=== PATIENT | male | born 1960 | race Caucasian/White ===

== ENCOUNTER 2020-06-01 05:39 | Inpatient (IN) | payer BC ==
[~2020-06-01] VITALS: Ht 175.3 cm; Wt 88.2 kg
[2020-06-01] VITALS (15 sets, daily range): BP systolic 108–156; BP diastolic 53–100
[2020-06-01] MEDS ORDERED: ketorolac trometh. 30mg/ml inj. IV ONE (06:25)
[2020-06-01] MEDS ORDERED: acetaminophen 325mg tablet PO ONE (06:25)
[2020-06-01] MEDS ORDERED: ondansetron/PF 4mg/2ml inj IV ONE (06:25)
[2020-06-01] MEDS ORDERED: morphine 4 MG/ML inj SYRINge IV ONE (06:25)
[2020-06-01] MEDS ORDERED: normal saline 1000ml 1,000 ML IV ONE (06:25)
--- NOTE | 2020-06-01 06:44 | NUR ---
[facility] [phone]
[2020-06-01 06:53] LABS: BASOPHILS # (AUTO) 0.1 X10'3 (0-0.2); EOSINOPHILS # (AUTO) 0.2 X10'3 (0-0.9); EOSINOPHILS % (AUTO) 1.5 % (0-6); MEAN CORPUSCULAR VOLUME 86.7 FL (78-98)
[2020-06-01 06:55] LABS: BASOPHILS % (AUTO) 0.5 % (0-1); HEMATOCRIT 35.3 % (42.0-52.0); HEMOGLOBIN 11.9 g/dl (14.0-17.9); LYMPHOCYTES # (AUTO) 1.8 X10'3 (1.1-4.8); LYMPHOCYTES % (AUTO) 12.8 % (21-51); MEAN CORPUSCULAR HEMOGLOBIN 29.1 PG (27.0-31.0); MEAN CORPUSCULAR HGB CONC 33.6 g/dL (33.0-36.5); MEAN PLATELET VOLUME 6.9 FL (7.4-10.4); MONOCYTES # (AUTO) 1.6 X10'3 (0-0.9); MONOCYTES % (AUTO) 11.4 % (2-12); NEUTROPHILS # (AUTO) 10.3 X10'3 (1.8-7.7); NEUTROPHILS % (AUTO) 73.8 % (42-75); PLATELET COUNT 617 X10'3 (140-440); RED BLOOD COUNT 4.07 X10'6 (4.70-6.10); RED CELL DISTRIBUTION WIDTH 12.8 % (11.5-14.5)
[2020-06-01 06:56] LABS: CLARITY,URINE CLEAR (Clear); COLOR,URINE YELLOW (Yellow); GLUCOSE, URINE NEGATIVE (Neg); KETONES,URINE NEGATIVE (Neg); LEUKOCYTE ESTERASE ,URINE NEGATIVE (Neg); NITRITES, URINE NEGATIVE (Neg); OCCULT BLOOD,URINE SMALL (Neg); PH,URINE 6.5 (4.8-8.0); PROTEIN,URINE NEGATIVE (Neg); UROBILINOGEN,URINE 0.2 E.U/dL (0.2-1.0)
[2020-06-01 07:00] LABS: UA COLLECTION TYPE URINAL
[2020-06-01 07:05] LABS: BACTERIA,URINE FEW /HPF (Neg); MUCUS STRANDS FEW /LPF (Neg); SQUAMOUS EPITHELIAL CELL,UR FEW /LPF (FEW); WBC,URINE 0-4 /HPF (0-4)
[2020-06-01 07:20] LABS: ALANINE AMINOTRANSFERASE 50 U/L (12-78); ALBUMIN 2.8 G/DL (3.4-5.0); ALBUMIN/GLOBULIN RATIO 0.6 (1.1-1.5); ALKALINE PHOSPHATASE 97 IU/L (46-116); ANION GAP 14 (8-16); ASPARTATE AMINO TRANSFERASE 14 U/L (10-37); BILIRUBIN,TOTAL 0.4 MG/DL (0.1-1.0); BLOOD UREA NITROGEN 10 MG/DL (7-18); BUN/CREATININE RATIO 9.1 (5.4-32.0); CALCIUM 9.2 MG/DL (8.5-10.1); CHLORIDE 102 MMOL/L (99-107); GLUCOSE 158 MG/DL (70-104); POTASSIUM 3.4 MMOL/L (3.5-5.1); SODIUM 138 MMOL/L (135-145); TOTAL CARBON DIOXIDE 22.3 MMOL/L (24-32); TOTAL PROTEIN 7.7 G/DL (6.4-8.2); eGFR 68 ML/MIN
[2020-06-01] MEDS ORDERED: iohexol 300mg/ml 100ml inj. ONE (07:27)
[2020-06-01] MEDS ORDERED: piperacillin/tazo 4.5gm/100ml 100 ML IV SCH (08:30)
[2020-06-01] MEDS ORDERED: NO HOME MEDS (08:51)
[2020-06-01] MEDS ORDERED: mag hydrox/Alum hydrox/simeth 30ml oral suspension PO PRN (09:15)
[2020-06-01] MEDS ORDERED: magnesium hydroxide 30ml (MOM) UD suspension PO PRN (09:15)
[2020-06-01] MEDS ORDERED: acetaminophen 325mg tablet PO PRN ×2 (09:15)
[2020-06-01] MEDS ORDERED: HYDROcodone/acetaminophen 10/325mg tab PO PRN ×2 (09:15→16:15)
[2020-06-01] MEDS ORDERED: magnesium 4gm in 100ml NS 100 ML IV PRN (09:15)
[2020-06-01] MEDS ORDERED: morphine 2 MG/ML inj. syringe IV PRN ×3 (09:15→15:15)
[2020-06-01] MEDS ORDERED: potassium Cl 20 mEq SR tablet PO PRN ×2 (09:15)
[2020-06-01] MEDS ORDERED: potassium CL 10mEq/100ml bag 100 ML IV PRN ×2 (09:15)
[2020-06-01] MEDS ORDERED: magnesium Cl slow-release 64mg tablet PO PRN (09:15)
[2020-06-01] MEDS ORDERED: magnesium 2GM in 50ml NS 50 ML IV PRN (09:15)
[2020-06-01] MEDS ORDERED: ondansetron/PF 4mg/2ml inj IV PRN ×2 (09:15→15:15)
[2020-06-01] MEDS ORDERED: HYDROcodone/acetaminophen 5mg/325mg tablet PO PRN ×2 (09:15→16:15)
[2020-06-01 09:41] LABS: HEMOGLOBIN A1C 6.4 % (4.5-6.2)
[2020-06-01] MEDS: normal saline 1000ml 1,000 ML IV SCH ×2 (09:59→18:50)
[2020-06-01] MEDS: vancomycin/NS 1 GM ADD-VANTAGE 250 ML IV SCH ×2 (10:00→22:58)
--- NOTE | 2020-06-01 11:32 | NUR ---
Attempted to call report.
--- NOTE | 2020-06-01 12:03 | NUR ---
I have received report from MEY Doss and had the opportunity to ask questions and assume patient care.
--- NOTE | 2020-06-01 12:10 | NUR ---
Pt arrived to surgical floor via wheelchair to room 355B
[2020-06-01] MEDS ORDERED: BUPIVAcaine 0.25% w/Epi /PF 30ml vial ONE ×2 (15:00→15:08)
[2020-06-01] MEDS ORDERED: LIDOcaine 1% w/epiNEPHrine 1:200,000 30ml vial ONE (15:00)
--- NOTE | 2020-06-01 15:07 | NUR ---
Pt not on surgical floor for 1000 dose vancomycin.
--- NOTE | 2020-06-01 15:08 | NUR ---
Pt transferred to OR via hospital bed. All belongings left in room 355B.
[2020-06-01] MEDS ORDERED: ringers solution, lacted 1,000 ML IV SCH (15:15)
[2020-06-01] MEDS ORDERED: proCHLORperazine 10 MG/2 ml inj IV PRN (15:15)
[2020-06-01] MEDS ORDERED: meperidine/PF 25mg/ml syringe IV PRN ×3 (15:15)
[2020-06-01] MEDS ORDERED: morphine 4 MG/ML inj SYRINge IV PRN (15:15)
[2020-06-01] MEDS ORDERED: rocuronium 10mg/ml inj IV ONE (15:22)
[2020-06-01] MEDS ORDERED: midazolam 2 mg/2 ml injection ONE (15:22)
[2020-06-01] MEDS ORDERED: propofol inj 20 ML IV ONE (15:22)
[2020-06-01] MEDS ORDERED: fentaNYL/PF 50MCG/1 ML 2ML syringe ONE (15:22)
[2020-06-01] MEDS ORDERED: sugammadex 200mg/2ml injection IV ONE (15:48)
--- NOTE | 2020-06-01 16:00 | NUR ---
Received from OR via surgical bed, accompanied by Anesthesiologist Jarrell and report given by Anesthesiolgist. 20G right AC NS at 100cc/hr. Surgical site has packing, ABD and mesh pants over it.
--- NOTE | 2020-06-01 16:00 | NUR ---
All VS stable at time of arrival to PACU and sats 98% mask at 10L.
--- NOTE | 2020-06-01 16:40 | NUR ---
Pt returned to OR on hospital bed, call light within reach, post op vital signs started. Will continue to monitor.
--- NOTE | 2020-06-01 16:40 | NUR ---
Report called to receiving nurse. Transferred via surgical bed to room 355B. Belongings remain in patient's room. Special Issues communicated to receiving nurse Jeanie MATHIAS. Pt alert and oriented, 0/10 pain. Call light within reach and BLL. Post op VS stable. Chart at bedside.
[2020-06-01] MEDS ORDERED: oxymetazoline 15 ML nasal spray NS PRN (17:25)
--- NOTE | 2020-06-01 18:50 | NUR ---
Problems reprioritized. Patient report given, questions answered & plan of care reviewed with MEY Ferro.
--- NOTE | 2020-06-01 18:52 | NUR ---
Patient in room [facility] 355. I have received report from BRENDA MATHIAS and had the opportunity to ask questions and assume patient care.
[2020-06-01] MEDS: K and/or MAG REPLACEMENT MC SCH (20:00)
[2020-06-01] MEDS ORDERED: temazepam 15mg capsule PO PRN (21:00)
[2020-06-01] MEDS: heparin, porcine 5000 units/ml vial SQ SCH (21:22)
[2020-06-02] VITALS: BP 100/50
[2020-06-02 05:31] LABS: ALANINE AMINOTRANSFERASE 36 U/L (12-78); ALBUMIN 2.4 G/DL (3.4-5.0); ALBUMIN/GLOBULIN RATIO 0.5 (1.1-1.5); ALKALINE PHOSPHATASE 77 IU/L (46-116); ANION GAP 10 (8-16); ASPARTATE AMINO TRANSFERASE 9 U/L (10-37); BILIRUBIN,TOTAL 0.3 MG/DL (0.1-1.0); BLOOD UREA NITROGEN 8 MG/DL (7-18); BUN/CREATININE RATIO 9.2 (5.4-32.0); CALCIUM 8.9 MG/DL (8.5-10.1); CHLORIDE 107 MMOL/L (99-107); CREATININE 0.87 MG/DL (0.60-1.10); GLUCOSE 106 MG/DL (70-104); POTASSIUM 3.6 MMOL/L (3.5-5.1); SODIUM 142 MMOL/L (135-145); TOTAL CARBON DIOXIDE 24.6 MMOL/L (24-32); TOTAL PROTEIN 6.8 G/DL (6.4-8.2); eGFR 89 ML/MIN
[2020-06-02 06:23] LABS: BASOPHILS % (AUTO) 0.4 % (0-1); EOSINOPHILS # (AUTO) 0.3 X10'3 (0-0.9); EOSINOPHILS % (AUTO) 2.9 % (0-6); HEMATOCRIT 30.9 % (42.0-52.0); HEMOGLOBIN 10.4 g/dl (14.0-17.9); LYMPHOCYTES # (AUTO) 2.1 X10'3 (1.1-4.8); LYMPHOCYTES % (AUTO) 19.6 % (21-51); MEAN CORPUSCULAR HEMOGLOBIN 29.8 PG (27.0-31.0); MEAN CORPUSCULAR HGB CONC 33.7 g/dL (33.0-36.5); MEAN CORPUSCULAR VOLUME 88.3 FL (78-98); MEAN PLATELET VOLUME 6.9 FL (7.4-10.4); MONOCYTES % (AUTO) 9.3 % (2-12); NEUTROPHILS # (AUTO) 7.4 X10'3 (1.8-7.7); NEUTROPHILS % (AUTO) 67.8 % (42-75); PLATELET COUNT 549 X10'3 (140-440); RED CELL DISTRIBUTION WIDTH 13.1 % (11.5-14.5); WHITE BLOOD COUNT 10.9 X10'3 (4.5-11.0)
--- NOTE | 2020-06-02 06:30 | NUR ---
Problems reprioritized. Patient report given, questions answered & plan of care reviewed with BRENDA MATHIAS.
--- NOTE | 2020-06-02 06:43 | NUR ---
Patient in room [facility] 355. I have received report from MEY Ferro and had the opportunity to ask questions and assume patient care.
[2020-06-02 07:00] VITALS: BP 117/73
[2020-06-02] MEDS: K and/or MAG REPLACEMENT MC SCH (08:00)
[2020-06-02] MEDS: heparin, porcine 5000 units/ml vial SQ SCH (08:28)
[2020-06-02] MEDS: normal saline 1000ml 1,000 ML IV SCH (08:28)
[2020-06-02 11:00] VITALS: BP 125/69
[2020-06-02] MEDS: vancomycin/NS 1 GM ADD-VANTAGE 250 ML IV SCH (11:50)
[2020-06-02] MEDS ORDERED: ACET-1008 PO (15:39)
[2020-06-02] MEDS ORDERED: IBUP-1985 PO (15:48)
--- NOTE | 2020-06-02 16:24 | NUR ---
Pt discharged per nursing. Discharge instructions and medications reviewed. Pt declined to have ibuprofen and acetaminophen called in to pharmacy. States he has a large bottle of both at home. Pt instructed to follow up with wound care clinic, phone number provided for pt to call on Thursday for appointment. Pt provided with sitz bath, gia bottle, and several ABD pads. Educated pt to watch for signs or symptoms of infection, and to return to ED if any symptoms noted. Pt stated understanding of all discharge instructions and willingness to comply. Ride pending.
--- NOTE | 2020-06-02 16:30 | NUR ---
Pt escorted to front lobby by primary RN, with all belongings.
[2020-06-02] MEDS ORDERED: CIPR-259 PO (18:49)
[2020-06-02] MEDS ORDERED: METR-159 PO (18:50)
[2020-06-02] MEDS ORDERED: lactobacillus rhamnosus 10,000 MMU CELLS/CAPSULE PO SCH (20:00)
[2020-06-02] MEDS ORDERED: VANCOMYCIN LEVEL IV ONE (21:30)
== END 2020-06-02 16:32 | disposition home or self-care (01) | DRG 395 ==
LOC: ER 05:40 → ED HOLD 09:13 → SUR 3N 12:25
PROVIDERS: ADMIT Internal Medicine; ATTEND Internal Medicine
PROC: BW211ZZ Computerized Tomography (CT Scan) of Abdomen and Pelvis using Low Osmolar Contrast (ICD-10-PCS; 2020-06-01)
PROC: 0D9P3ZZ Drainage of Rectum, Percutaneous Approach (ICD-10-PCS; principal; 2020-06-01 15:14)
DX: K61.2 Anorectal abscess (principal); K21.9 Gastro-esophageal reflux disease without esophagitis
CPT/HCPCS: 36415; 71045; 74177; 80053; 81001; 82948; 83036; 83605; 83735; 84145; 84484; 85025; 87070; 87075; 87077; 87081; 87102; 87186; 93005; C9399; G0378; J1644; J1885; J2250; J2270; J2405; J2543; J2704; J3010; J3370; J7030; Q9967

== ENCOUNTER 2020-06-13 13:06 | Outpatient (CLI) | payer BC ==
[~2020-06-13 13:06] MED LIST: ACET-1008 PO; CIPR-259 PO; IBUP-1985 PO; METR-159 PO
[2020-06-13] MEDS ORDERED: LIDOcaine 2% 5ml jelly ONE (13:37)
== END 2020-06-13 23:59 | disposition home or self-care (01) ==
LOC: WOUND CARE 13:06
PROVIDERS: ATTEND Nurse Practitioner
DX: T81.31XA Disruption of external operation (surgical) wound, not elsewhere classified, initial encounter (principal); L98.492 Non-pressure chronic ulcer of skin of other sites with fat layer exposed; K61.1 Rectal abscess; K21.9 Gastro-esophageal reflux disease without esophagitis; Z87.891 Personal history of nicotine dependence; Y83.8 Other surgical procedures as the cause of abnormal reaction of the patient, or of later complication, without mention of misadventure at the time of the procedure; Y92.238 Other place in hospital as the place of occurrence of the external cause
CPT/HCPCS: 11042

== ENCOUNTER 2020-06-17 11:08 | Inpatient (IN) | payer BC ==
[~2020-06-17] VITALS: Ht 172.7 cm; Wt 103.5 kg
[~2020-06-17 11:08] MED LIST changes: -CIPR-259 PO; -METR-159 PO
[2020-06-17 12:45] LABS: BASOPHILS # (AUTO) 0.1 X10'3 (0-0.2); BASOPHILS % (AUTO) 0.6 % (0-1); EOSINOPHILS # (AUTO) 0.1 X10'3 (0-0.9); EOSINOPHILS % (AUTO) 0.6 % (0-6); HEMATOCRIT 37.6 % (42.0-52.0); HEMOGLOBIN 12.6 g/dl (14.0-17.9); LYMPHOCYTES % (AUTO) 15.3 % (21-51); MEAN CORPUSCULAR HEMOGLOBIN 28.8 PG (27.0-31.0); MEAN CORPUSCULAR HGB CONC 33.5 g/dL (33.0-36.5); MEAN CORPUSCULAR VOLUME 86.1 FL (78-98); MONOCYTES # (AUTO) 1.4 X10'3 (0-0.9); NEUTROPHILS # (AUTO) 9.5 X10'3 (1.8-7.7); NEUTROPHILS % (AUTO) 72.5 % (42-75); PLATELET COUNT 389 X10'3 (140-440); RED BLOOD COUNT 4.37 X10'6 (4.70-6.10); RED CELL DISTRIBUTION WIDTH 13.7 % (11.5-14.5); WHITE BLOOD COUNT 13.1 X10'3 (4.5-11.0)
[2020-06-17 12:51] LABS: ALANINE AMINOTRANSFERASE 64 U/L (12-78); ALBUMIN 3.4 G/DL (3.4-5.0); ALBUMIN/GLOBULIN RATIO 0.8 (1.1-1.5); ALKALINE PHOSPHATASE 106 IU/L (46-116); ANION GAP 10 (8-16); ASPARTATE AMINO TRANSFERASE 22 U/L (10-37); BILIRUBIN,TOTAL 0.6 MG/DL (0.1-1.0); BLOOD UREA NITROGEN 11 MG/DL (7-18); BUN/CREATININE RATIO 12.8 (5.4-32.0); CALCIUM 9.4 MG/DL (8.5-10.1); CHLORIDE 104 MMOL/L (99-107); CREATININE 0.86 MG/DL (0.60-1.10); GLUCOSE 134 MG/DL (70-104); POTASSIUM 3.9 MMOL/L (3.5-5.1); SODIUM 140 MMOL/L (135-145); TOTAL CARBON DIOXIDE 26.1 MMOL/L (24-32); TOTAL PROTEIN 7.6 G/DL (6.4-8.2); eGFR 90 ML/MIN
[2020-06-17] MEDS ORDERED: morphine 4 MG/ML inj SYRINge IV ONE (13:10)
[2020-06-17] MEDS ORDERED: iohexol 300mg/ml 100ml inj. ONE (13:19)
[2020-06-17] MEDS ORDERED: piperacillin/tazo 4.5gm/100ml 100 ML IV ONE (15:38)
[2020-06-17] MEDS ORDERED: HYDROcodone/acetaminophen 5mg/325mg tablet PO PRN (16:00)
[2020-06-17] MEDS ORDERED: potassium CL 10mEq/100ml bag 100 ML IV PRN ×2 (16:00)
[2020-06-17] MEDS ORDERED: diphenhydrAMINE 50 mg/ml inj IV PRN (16:00)
[2020-06-17] MEDS ORDERED: magnesium Cl slow-release 64mg tablet PO PRN (16:00)
[2020-06-17] MEDS ORDERED: mag hydrox/Alum hydrox/simeth 30ml oral suspension PO PRN (16:00)
[2020-06-17] MEDS ORDERED: HYDROcodone/acetaminophen 10/325mg tab PO PRN (16:00)
[2020-06-17] MEDS ORDERED: ondansetron/PF 4mg/2ml inj IV PRN ×2 (16:00→21:50)
[2020-06-17] MEDS ORDERED: diphenhydrAMINE 25mg capsule PO PRN (16:00)
[2020-06-17] MEDS ORDERED: magnesium 2GM in 50ml NS 50 ML IV PRN (16:00)
[2020-06-17] MEDS ORDERED: acetaminophen 325mg tablet PO PRN ×2 (16:00)
[2020-06-17] MEDS ORDERED: potassium Cl 20 mEq SR tablet PO PRN ×2 (16:00)
[2020-06-17] MEDS ORDERED: magnesium hydroxide 30ml (MOM) UD suspension PO PRN (16:00)
[2020-06-17] MEDS ORDERED: magnesium 4gm in 100ml NS 100 ML IV PRN (16:00)
[2020-06-17] MEDS ORDERED: bisacodyl 10mg suppository rectal RC PRN (16:00)
[2020-06-17] MEDS ORDERED: metoclopramide 5 mg/ml inj IV PRN (16:00)
[2020-06-17] MEDS ORDERED: NO HOME MEDS (16:13)
[2020-06-17] MEDS ORDERED: TETanus/Pertussis (Acell)/Diphther VAC/PF (Tdap-Adult) 0.5ml syringe IMVAC ONE (16:30)
--- NOTE | 2020-06-17 16:33 | NUR ---
Hospitalist at bedside to see patient.
[2020-06-17] MEDS: normal saline 1000ml 1,000 ML IV SCH (16:35)
--- NOTE | 2020-06-17 16:48 | NUR ---
Rapid covid test obtained and send to lab.
--- NOTE | 2020-06-17 16:48 | NUR ---
Jefry becker in [facility], [place] - 06/17/20 at 1648 by DILIP rAPID COVID TEST OBTAINED AND SEND TO LAB
--- NOTE | 2020-06-17 16:48 | NUR ---
rAPID COVID TEST OBTAINED AND SEND TO LAB
[2020-06-17] MEDS ORDERED: LIDOcaine 2% 10ml TOPICAL JELLY (Urojet) MM ONE (16:50)
--- NOTE | 2020-06-17 17:35 | NUR ---
Patient in room ED 1. I have received report from Deb MATHIAS from ED and had the opportunity to ask questions and assume patient care.
--- NOTE | 2020-06-17 18:12 | NUR ---
Problems reprioritized. Patient report given, questions answered & plan of care reviewed with Fatemeh MATHIAS.
[2020-06-17] MEDS: K and/or MAG REPLACEMENT MC SCH (19:31)
[2020-06-17] MEDS: docusate sod 100mg capsule PO SCH (19:40)
[2020-06-17] MEDS: HYDROmorphone inj. 0.5 MG/0.5 ML DISP.SYRIN IV PRN ×2 (19:44→23:51)
[2020-06-17 20:00] VITALS: BP 147/85
[2020-06-17] MEDS ORDERED: hydrALAZINE 20mg/ml inj. IV PRN (21:50)
[2020-06-17] MEDS ORDERED: meperidine/PF 25mg/ml syringe IV PRN ×3 (21:50)
[2020-06-17] MEDS ORDERED: labetalol 20mg/4ml (5mg/ml) syringe IV PRN (21:50)
[2020-06-17] MEDS ORDERED: morphine 4 MG/ML inj SYRINge IV PRN (21:50)
[2020-06-17] MEDS ORDERED: ringers solution, lacted 1,000 ML IV SCH (21:50)
[2020-06-17] MEDS ORDERED: proCHLORperazine 10 MG/2 ml inj IV PRN (21:50)
[2020-06-17] MEDS ORDERED: morphine 2 MG/ML inj. syringe IV PRN (21:50)
--- NOTE | 2020-06-17 23:31 | NUR ---
Patient in room [facility] 350. I have received report from Giovanny MATHIAS and had the opportunity to ask questions and assume patient care.
[2020-06-17] MEDS: piperacillin/tazo 3.375gm/50ml 50 ML IV SCH (23:50)
[2020-06-18] VITALS (26 sets, daily range): BP systolic 104–139; BP diastolic 65–91
[2020-06-18] MEDS: normal saline 1000ml 1,000 ML IV SCH ×3 (02:00→17:08)
[2020-06-18 05:49] LABS: BASOPHILS # (AUTO) 0.1 X10'3 (0-0.2); BASOPHILS % (AUTO) 0.7 % (0-1); EOSINOPHILS # (AUTO) 0.1 X10'3 (0-0.9); HEMATOCRIT 33.9 % (42.0-52.0); HEMOGLOBIN 11.4 g/dl (14.0-17.9); LYMPHOCYTES # (AUTO) 2.4 X10'3 (1.1-4.8); MEAN CORPUSCULAR HEMOGLOBIN 29.2 PG (27.0-31.0); MEAN CORPUSCULAR HGB CONC 33.6 g/dL (33.0-36.5); MEAN CORPUSCULAR VOLUME 86.8 FL (78-98); MEAN PLATELET VOLUME 7.1 FL (7.4-10.4); MONOCYTES # (AUTO) 1.1 X10'3 (0-0.9); MONOCYTES % (AUTO) 11.8 % (2-12); NEUTROPHILS # (AUTO) 5.8 X10'3 (1.8-7.7); NEUTROPHILS % (AUTO) 61.5 % (42-75); PLATELET COUNT 339 X10'3 (140-440); RED CELL DISTRIBUTION WIDTH 13.8 % (11.5-14.5); WHITE BLOOD COUNT 9.5 X10'3 (4.5-11.0)
[2020-06-18 06:02] LABS: ALANINE AMINOTRANSFERASE 46 U/L (12-78); ALBUMIN 2.8 G/DL (3.4-5.0); ALBUMIN/GLOBULIN RATIO 0.7 (1.1-1.5); ALKALINE PHOSPHATASE 92 IU/L (46-116); ANION GAP 8 (8-16); ASPARTATE AMINO TRANSFERASE 12 U/L (10-37); BILIRUBIN,TOTAL 0.6 MG/DL (0.1-1.0); BLOOD UREA NITROGEN 8 MG/DL (7-18); BUN/CREATININE RATIO 10.1 (5.4-32.0); CALCIUM 8.7 MG/DL (8.5-10.1); CHLORIDE 105 MMOL/L (99-107); CREATININE 0.79 MG/DL (0.60-1.10); GLUCOSE 123 MG/DL (70-104); MAGNESIUM 1.9 MG/DL (1.5-2.4); POTASSIUM 3.8 MMOL/L (3.5-5.1); SODIUM 140 MMOL/L (135-145); TOTAL CARBON DIOXIDE 26.6 MMOL/L (24-32); TOTAL PROTEIN 6.9 G/DL (6.4-8.2); eGFR > 90 ML/MIN
--- NOTE | 2020-06-18 06:26 | NUR ---
Problems reprioritized. Patient report given, questions answered & plan of care reviewed with Cat MATHIAS.
--- NOTE | 2020-06-18 06:29 | NUR ---
Patient in room [facility] 344. I have received report from and had the opportunity to ask questions and assume patient care. Addendum: 06/18/20 at 1201 by Cat Jett RN RECEIVED REPORT FROM EFRAIN MATHIAS
[2020-06-18] MEDS: piperacillin/tazo 3.375gm/50ml 50 ML IV SCH ×2 (07:50→17:08)
[2020-06-18] MEDS: docusate sod 100mg capsule PO SCH ×2 (08:00→20:32)
[2020-06-18] MEDS: K and/or MAG REPLACEMENT MC SCH ×2 (08:00→20:00)
[2020-06-18] MEDS ORDERED: ringers solution, lacted 1,000 ML IV ONE (08:40)
[2020-06-18] MEDS ORDERED: ringers solution, lacted 1,000 ML IV SCH (10:55)
[2020-06-18] MEDS ORDERED: ondansetron/PF 4mg/2ml inj IV PRN (10:55)
[2020-06-18] MEDS ORDERED: meperidine/PF 25mg/ml syringe IV PRN ×2 (10:55)
[2020-06-18] MEDS ORDERED: morphine 2 MG/ML inj. syringe IV PRN (10:55)
[2020-06-18] MEDS ORDERED: morphine 4 MG/ML inj SYRINge IV PRN (10:55)
[2020-06-18] MEDS ORDERED: proCHLORperazine 10 MG/2 ml inj IV PRN (10:55)
--- NOTE | 2020-06-18 11:00 | NUR ---
PATIENT PREPPED FOR SURGERY. REPORT CALLED TO KALPANA MATHIAS IN [facility]. PATIENT WENT FOR SURGERY 1130HRS.
[2020-06-18] MEDS ORDERED: sevoflurane 250ml liquid IH ONE (13:09)
[2020-06-18] MEDS ORDERED: propofol inj 20 ML IV ONE (13:11)
[2020-06-18] MEDS ORDERED: fentaNYL/PF 50MCG/1 ML 2ML syringe ONE (13:11)
[2020-06-18] MEDS ORDERED: midazolam 2 mg/2 ml injection ONE (13:11)
[2020-06-18] MEDS ORDERED: BUPIVAcaine/PF 2.5 mg/ml (0.25%) 30ml vial ONE (13:32)
--- NOTE | 2020-06-18 14:09 | NUR ---
Received from OR via BED, accompanied by Anesthesiologist DR KOWALSKI and report given by Anesthesiologist. PT DROWSY, DENIES PAIN, BUTTOCKS COVERED W/GAUZE/MESH UNDER LENNY PARNELL. Addendum: 06/18/20 at 1551 by Astrid Sexton RN Amended: Links added.
[2020-06-18] MEDS: meperidine/PF 25mg/ml syringe IV PRN ×2 (14:46→15:35)
--- NOTE | 2020-06-18 16:19 | NUR ---
Report called to receiving nurse. Transferred via BED, NO Belongings, PT COMFORTABLE, RECEIVING RN NOTIFIED OF PTS ARRIVAL. Special Issues communicated to receiving nurse. YES. Addendum: 06/18/20 at 1635 by Astrid Sexton RN Amended: Links added.
--- NOTE | 2020-06-18 16:30 | NUR ---
Patient in room [facility] 344. I have received report from KALPANA MATHIAS and had the opportunity to ask questions and assume patient care.
--- NOTE | 2020-06-18 16:30 | NUR ---
PATIENT RETURNED TO FLOOR IN STABLE CONDITION. DRESSING CDI. DILAUDID GIVEN FOR PAIN .VSS, WILL CONTINUE TO MONITOR.
[2020-06-18] MEDS: HYDROmorphone inj. 0.5 MG/0.5 ML DISP.SYRIN IV PRN (16:56)
--- NOTE | 2020-06-18 18:42 | NUR ---
Problems reprioritized. Patient report given, questions answered & plan of care reviewed with fatuma north.
[2020-06-18] MEDS ORDERED: lactobacillus rhamnosus 10,000 MMU CELLS/CAPSULE PO SCH (20:00)
[2020-06-19] VITALS: BP 122/74
[2020-06-19] MEDS: piperacillin/tazo 3.375gm/50ml 50 ML IV SCH ×2 (00:21→07:24)
[2020-06-19] MEDS: normal saline 1000ml 1,000 ML IV SCH (03:02)
[2020-06-19 04:00] VITALS: BP 113/77
[2020-06-19 04:57] LABS: BASOPHILS # (AUTO) 0.1 X10'3 (0-0.2); BASOPHILS % (AUTO) 0.8 % (0-1); EOSINOPHILS # (AUTO) 0.2 X10'3 (0-0.9); EOSINOPHILS % (AUTO) 3.3 % (0-6); HEMOGLOBIN 11.1 g/dl (14.0-17.9); LYMPHOCYTES # (AUTO) 1.8 X10'3 (1.1-4.8); LYMPHOCYTES % (AUTO) 27.8 % (21-51); MEAN CORPUSCULAR HEMOGLOBIN 29.3 PG (27.0-31.0); MEAN CORPUSCULAR HGB CONC 33.6 g/dL (33.0-36.5); MEAN CORPUSCULAR VOLUME 87.1 FL (78-98); MONOCYTES # (AUTO) 0.6 X10'3 (0-0.9); MONOCYTES % (AUTO) 9.1 % (2-12); NEUTROPHILS # (AUTO) 3.8 X10'3 (1.8-7.7); PLATELET COUNT 347 X10'3 (140-440); RED BLOOD COUNT 3.79 X10'6 (4.70-6.10); RED CELL DISTRIBUTION WIDTH 13.5 % (11.5-14.5); WHITE BLOOD COUNT 6.5 X10'3 (4.5-11.0)
[2020-06-19 05:20] LABS: ALBUMIN 2.7 G/DL (3.4-5.0); ALBUMIN/GLOBULIN RATIO 0.7 (1.1-1.5); ANION GAP 8 (8-16); ASPARTATE AMINO TRANSFERASE 15 U/L (10-37); BILIRUBIN,TOTAL 0.5 MG/DL (0.1-1.0); BLOOD UREA NITROGEN 7 MG/DL (7-18); BUN/CREATININE RATIO 8.9 (5.4-32.0); CALCIUM 8.8 MG/DL (8.5-10.1); CHLORIDE 107 MMOL/L (99-107); CREATININE 0.79 MG/DL (0.60-1.10); GLUCOSE 104 MG/DL (70-104); POTASSIUM 3.8 MMOL/L (3.5-5.1); SODIUM 142 MMOL/L (135-145); TOTAL CARBON DIOXIDE 27.1 MMOL/L (24-32); TOTAL PROTEIN 6.7 G/DL (6.4-8.2); eGFR > 90 ML/MIN
[2020-06-19 05:21] LABS: ALANINE AMINOTRANSFERASE 41 U/L (12-78); ALKALINE PHOSPHATASE 85 IU/L (46-116)
--- NOTE | 2020-06-19 06:24 | NUR ---
Patient in room [facility] 344. I have received report from fatuma north and had the opportunity to ask questions and assume patient care.
--- NOTE | 2020-06-19 06:34 | NUR ---
Problems reprioritized. Patient report given, questions answered & plan of care reviewed with [facility]. Addendum: 06/19/20 at 0634 by Maik Dorantes RN Amended: Links added.
[2020-06-19 06:55] VITALS: BP 110/85
[2020-06-19 07:17] VITALS: BP 122/65
[2020-06-19] MEDS: docusate sod 100mg capsule PO SCH (07:24)
[2020-06-19] MEDS ORDERED: AMOX-422 PO (11:14)
--- NOTE | 2020-06-19 11:32 | NUR ---
Spoke with Dr Solomon, He is ok for discharge. Remove packing- Dr Solomon aware packing already came out. Sitz bath TID, and to follow up with Dr Solomon on Thursday. Primary RN Cat aware and information put in discharge instructions
--- NOTE | 2020-06-19 14:25 | NUR ---
patient seen by Dr Lara and dr freed, is for discharge. dressing changed packing removed by patient when had BM . patient to follow up with dr freed on thursday supplies given to patient for dressing changes. patient DC home in private car with spouse to home. [id number]
== END 2020-06-19 13:04 | disposition home or self-care (01) | DRG 346 ==
LOC: ER 11:09 → ED HOLD 15:59 → SUR 3N 18:14
PROVIDERS: ADMIT Family Medicine; ATTEND Family Medicine
PROC: 0D9P0ZZ Drainage of Rectum, Open Approach (ICD-10-PCS; principal; 2020-06-18 13:09)
DX: K61.2 Anorectal abscess (principal); K62.89 Other specified diseases of anus and rectum; Z20.828 Contact with and (suspected) exposure to other viral communicable diseases
CPT/HCPCS: 96374; 99285; Z7506; 36415; 72193; 80053; 82948; 83735; 85025; 85610; 87081; 87635; 90715; 93005; A4618; A6407; A6449; A7000; G0378; J1170; J2175; J2250; J2270; J2543; J2704; J3010; J3490; J7030; J7120; Q9967

== ENCOUNTER 2024-03-11 09:32 | Day surgery (SDC) | payer OTHER ==
[2024-03-03 10:37] LABS: BILIRUBIN,URINE NEGATIVE (Neg); CLARITY,URINE CLEAR (Clear); COLOR,URINE YELLOW (Yellow); GLUCOSE, URINE >=1000 mg/dl (Neg); KETONES,URINE NEGATIVE (Neg); LEUKOCYTE ESTERASE ,URINE NEGATIVE (Neg); NITRITES, URINE NEGATIVE (Neg); OCCULT BLOOD,URINE SMALL (Neg); PH,URINE 5.5 (4.8-8.0); PROTEIN,URINE NEGATIVE (Neg); UROBILINOGEN,URINE 0.2 E.U/dL (0.2-1.0)
[2024-03-03 10:38] LABS: BASOPHILS # (AUTO) 0.1 X10'3 (0-0.2); BASOPHILS % (AUTO) 1.1 % (0-1); EOSINOPHILS # (AUTO) 0.1 X10'3 (0-0.9); EOSINOPHILS % (AUTO) 2.5 % (0-6); LYMPHOCYTES # (AUTO) 1.4 X10'3 (1.1-4.8); LYMPHOCYTES % (AUTO) 24.7 % (21-51); MEAN CORPUSCULAR HEMOGLOBIN 27.7 PG (27.0-31.0); MEAN CORPUSCULAR HGB CONC 32.9 g/dL (33.0-36.5); MEAN CORPUSCULAR VOLUME 84.4 FL (78-98); MEAN PLATELET VOLUME 6.7 FL (7.4-10.4); MONOCYTES # (AUTO) 0.6 X10'3 (0-0.9); NEUTROPHILS # (AUTO) 3.5 X10'3 (1.8-7.7); NEUTROPHILS % (AUTO) 61.7 % (42-75); PRE OP HEMATOCRIT 49.2 % (42.0-52.0); PRE OP HEMOGLOBIN 16.2 g/dL (14.0-17.9); PRE OP PLATELET COUNT 343 X10'3 (140-440); PRE OP WHITE BLOOD COUNT 5.7 10'3 (4.8-10.8); RED BLOOD COUNT 5.83 X10'6 (4.70-6.10); RED CELL DISTRIBUTION WIDTH 15.5 % (11.5-14.5)
[2024-03-03 10:42] LABS: UA COLLECTION TYPE CLN CATCH MIDSTREAM
[2024-03-03 10:43] LABS: BACTERIA,URINE NONE SEEN /HPF (Neg); RBC,URINE 0-2 /HPF (0-2); SQUAMOUS EPITHELIAL CELL,UR FEW /LPF (FEW); WBC,URINE 0-4 /HPF (0-4)
[2024-03-03 10:52] LABS: ALBUMIN 4.1 G/DL (3.4-5.0); ALKALINE PHOSPHATASE 72 IU/L (46-116); BLOOD UREA NITROGEN 11 MG/DL (7-18); BUN/CREATININE RATIO 11.7 (10.0-20.0); CALCIUM 9.2 MG/DL (8.5-10.1); CHLORIDE 104 MMOL/L (99-107); CREATININE 0.94 MG/DL (0.60-1.10); PRE OP ALT 36 U/L (30-65); PRE OP ANION GAP 7 (8-16); PRE OP AST 19 U/L (10-37); PRE OP BILIRUB, TOTAL 0.6 MG/DL (0.0-1.0); PRE OP GLUCOSE 117 MG/DL (70-104); PRE OP POTASSIUM 4.3 MMOL/L (3.4-5.1); PRE OP SODIUM 139 MMOL/L (135-145); TOTAL CARBON DIOXIDE 27.8 MMOL/L (24-32); TOTAL PROTEIN 8.2 G/DL (6.4-8.2); eGFR 81 ML/MIN
[2024-03-11] VITALS (9 sets, daily range): BP systolic 109–140; BP diastolic 58–78; PULSE 63–78; RESP 12–16; TEMP 98.4; O2SAT 94–99
[~2024-03-11] VITALS: Ht 175.3 cm; Wt 90.9 kg
[2024-03-11] MEDS: cefazolin 2gm/D5W 100mL 100 ML IV ONE (05:30)
[~2024-03-11 09:32] MED LIST changes: -ACET-1008 PO; +ERTU15TA PO; +FLUT16SP26 BOTHNARES; -IBUP-1985 PO; +LISI10TA27 PO; +OMEP20CA15 PO; +ROSU5TAB43 PO; +TEST200V33 IM
[2024-03-11] MEDS ORDERED: bacitracin 15gm ointment TP ONE (10:08)
[2024-03-11] MEDS: famotidine 20mg tablet PO ONE (10:36)
[2024-03-11] MEDS: ringers solution, lacted 1,000 ML IV SCH (10:37)
[2024-03-11] MEDS ORDERED: sevoflurane 250ml liquid IH ONE (10:56)
[2024-03-11] MEDS: bacitracin 15gm ointment TP ONE (11:00)
[2024-03-11] MEDS ORDERED: midazolam 1 mg/ML 2ml injection ONE (11:05)
[2024-03-11] MEDS ORDERED: fentaNYL/PF 50MCG/1 ML 2ML syringe ONE (11:05)
[2024-03-11] MEDS ORDERED: dexamethasone sod phosphate 4mg/ml inj. ONE (11:11)
[2024-03-11] MEDS ORDERED: LIDOcaine 2% (20mg/ml) 5ml vial ONE (11:11)
[2024-03-11] MEDS ORDERED: propofol inj 20 ML IV ONE (11:11)
[2024-03-11] MEDS ORDERED: ROPIVAcaine 0.5% (5mg/ml) 30ml vial ONE (11:11)
[2024-03-11] MEDS ORDERED: ondansetron/PF 4mg/2ml inj ONE (11:12)
[2024-03-11] MEDS ORDERED: acetaminophen 1,000mg/100ml IV 100 ML IV ONE (11:12)
[2024-03-11] MEDS ORDERED: hydrALAZINE 20mg/ml inj. IV PRN (11:35)
[2024-03-11] MEDS ORDERED: labetalol 20mg/4ml (5mg/ml) syringe IV PRN (11:35)
[2024-03-11] MEDS ORDERED: fentaNYL/PF 50MCG/1 ML 2ML syringe IV PRN ×2 (11:35)
[2024-03-11] MEDS ORDERED: morphine 2 MG/ML inj. syringe IV PRN (11:35)
[2024-03-11] MEDS ORDERED: ringers solution, lacted 1,000 ML IV SCH (11:35)
[2024-03-11] MEDS ORDERED: ondansetron/PF 4mg/2ml inj IV PRN (11:35)
[2024-03-11] MEDS ORDERED: morphine 4 MG/ML inj SYRINge IV PRN (11:35)
== END 2024-03-11 13:50 | disposition home or self-care (01) ==
LOC: PAS 09:32
PROVIDERS: ATTEND Podiatrist Foot & Ankle Surgery
DX: M20.21 Hallux rigidus, right foot (principal); M19.071 Primary osteoarthritis, right ankle and foot; G89.18 Other acute postprocedural pain; I10 Essential (primary) hypertension; E78.5 Hyperlipidemia, unspecified; K21.9 Gastro-esophageal reflux disease without esophagitis; I25.2 Old myocardial infarction; Z87.891 Personal history of nicotine dependence; Z79.2 Long term (current) use of antibiotics; Z79.82 Long term (current) use of aspirin; Z79.890 Hormone replacement therapy; Z79.891 Long term (current) use of opiate analgesic; Z79.899 Other long term (current) drug therapy; Z98.890 Other specified postprocedural states
CPT/HCPCS: 28289; 36415; 64450; 73620; 80053; 81001; 82948; 85025; A6223; C1713; J0131; J0690; J1100; J2250; J2405; J2704; J2795; J3010; J3490; J7030; J7120; Z7506; Z7508; Z7512; 76000; A4215; A4618; A6449; A7000